=== PATIENT | male | born 1960 | race African-American/Black ===

== ENCOUNTER 2016-06-07 11:22 | Emergency (ER) | payer MEDICAID ==
[~2016-06-07] VITALS: Ht 182.9 cm; Wt 59.0 kg
[2016-06-07 11:22] VITALS: BP 130/86
[2016-06-07 11:53] VITALS: BP 130/86
[2016-06-07] MEDS ORDERED: IBUPROFEN600 MG ORAL (11:59)
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
== END 2016-06-07 12:21 | disposition home or self-care (01) ==
LOC: EDBD 11:22 → EMR 12:19
DX: S00.33XA Contusion of nose, initial encounter (principal); Y04.2XXA Assault by strike against or bumped into by another person, initial encounter; Y92.9 Unspecified place or not applicable
CPT/HCPCS: 99283

== ENCOUNTER 2016-12-08 16:16 | Emergency (ER) | payer MEDICAID ==
[~2016-12-08] VITALS: Ht 182.9 cm; Wt 68.0 kg
[~2016-12-08 16:16] MED LIST: IBUPROFEN600 MG ORAL
[2016-12-08] MEDS ORDERED: Tetanus/Diptheria/Pertussis Vaccine 0.5ml Syr IM ONE (16:30)
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
[2016-12-08] MEDS ORDERED: Lidocaine 1% 10mg/ml/Epi 0.005mg/ml 30ml vial INJ ONE (16:45)
[2016-12-08] MEDS ORDERED: CEPHALEXIN500 MG ORAL (17:06)
[2016-12-08] MEDS ORDERED: BACTRIM-DS1 EA ORAL (17:06)
[2016-12-08 17:10] VITALS: BP 133/84
[2016-12-08 18:16] VITALS: BP 133/84
== END 2016-12-08 18:19 | disposition home or self-care (01) ==
LOC: EDBD 16:16 → EMR 17:38
DX: S61.512A Laceration without foreign body of left wrist, initial encounter (principal); W26.0XXA Contact with knife, initial encounter; Y93.9 Activity, unspecified; Y92.9 Unspecified place or not applicable; Z23 Encounter for immunization; F20.9 Schizophrenia, unspecified; F31.9 Bipolar disorder, unspecified
CPT/HCPCS: 12002; 90471; 90715; 99284; Z7502

== ENCOUNTER 2017-10-01 10:06 | Emergency (ER) | payer MEDICAID ==
[~2017-10-01] VITALS: Ht 188 cm; Wt 72.6 kg
[~2017-10-01 10:06] MED LIST changes: +BACTRIM-DS1 EA ORAL; +CEPHALEXIN500 MG ORAL
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
[2017-10-01 10:48] LABS: BILIRUBIN, URINE NEGATIVE (NEGATIVE); GLUCOSE, URINE (UA) NEGATIVE (NEGATIVE); KETONES,URINE 1+ (NEGATIVE); LEUKOCYTE ESTERASE ,URINE 1+ (NEGATIVE); NITRITE,URINE NEGATIVE (NEGATIVE); PH,URINE 6 (4.5-8.0); PROTEIN,URINE 1+ (NEGATIVE); UROBILINOGEN,URINE 1 MG/DL (0.0-1.0)
[2017-10-01 10:51] LABS: BASOPHILS % (AUTO) 1.7 % (0.0-2.0); EOSINOPHILS % (AUTO) 1.4 % (0.0-3.0); HEMATOCRIT 44.8 % (42.0-52.0); HEMOGLOBIN 14.7 G/DL (14.2-18.0); MEAN CORPUSCULAR VOLUME 91 FL (80-99); MONOCYTES % (AUTO) 10.1 % (1.0-10.0); NEUTROPHILS % (AUTO) 33.9 % (45.0-75.0); PLATELET COUNT 265 K/UL (150-450); RED BLOOD COUNT 4.94 M/UL (4.70-6.10); WHITE BLOOD COUNT 4.8 K/UL (4.8-10.8)
[2017-10-01 10:53] LABS: APPEARANCE,URINE SLIGHTLY CLOUDY; COLOR,URINE YELLOW
[2017-10-01 10:59] LABS: ANION GAP 4 mmol/L (5-15); BLOOD UREA NITROGEN 6 mg/dL (7-18); CALCIUM 9.2 MG/DL (8.5-10.1); CARBON DIOXIDE 32 MMOL/L (21-32); CHLORIDE 101 MMOL/L (98-107); CREATININE 0.9 MG/DL (0.55-1.30); POTASSIUM 4.7 MMOL/L (3.5-5.1); SODIUM 137 MMOL/L (136-145)
[2017-10-01 11:03] LABS: ALANINE AMINOTRANSFERASE 24 U/L (12-78); ALBUMIN 3.8 G/DL (3.4-5.0); ALKALINE PHOSPHATASE 73 U/L (46-116); ASPARTATE AMINO TRANSFERASE 11 U/L (15-37); BILIRUBIN,TOTAL 0.6 MG/DL (0.2-1.0)
[2017-10-01 11:05] VITALS: BP 103/62
[2017-10-01 18:16] VITALS: BP 132/98
[2017-10-01 23:45] VITALS: BP 113/68
[2017-10-02 04:00] VITALS: BP 154/88
[2017-10-02 07:54] VITALS: BP 101/41
[2017-10-02 11:30] VITALS: BP 162/93
[2017-10-02 13:36] VITALS: BP 158/90
[2017-10-02 13:41] VITALS: BP 158/90
--- NOTE | 2017-10-04 12:20 | Cardiology Report ---
APPROVED REPORT EKG Measurement Heart [id number] Sinus rhythm with marked sinus arrhythmia with 1st degree AV block Otherwise normal ECG
== END 2017-10-02 13:41 ==
LOC: EDBD 10:06 → EMR 10:56
DX: F25.9 Schizoaffective disorder, unspecified (principal); F10.929 Alcohol use, unspecified with intoxication, unspecified; R10.9 Unspecified abdominal pain; F41.9 Anxiety disorder, unspecified; F12.10 Cannabis abuse, uncomplicated; Y90.6 Blood alcohol level of 120-199 mg/100 ml; Y04.2XXA Assault by strike against or bumped into by another person, initial encounter
CPT/HCPCS: 36415; 80053; 80307; 80329; 81003; 85025; 93005; 99285

== ENCOUNTER 2018-01-14 16:13 | Emergency (ER) | payer MEDICAID ==
[~2018-01-14] VITALS: Ht 188 cm; Wt 74.8 kg
[2018-01-14 15:50] VITALS: BP 125/74
[2018-01-14] MEDS ORDERED: Bacitracin Oint UD TOPIC ONE (17:45)
[2018-01-14] MEDS ORDERED: BACITRACIN-P28.35 GM TP (17:56)
--- NOTE | 2018-01-14 17:56 | Emergency Room Report ---
History of Present Illness General Chief Complaint: Wound Recheck/Suture Removal Source: EMS Present Illness HPI 59 YO Female presents for her back pain that she rates as 10/10 in severity. pt. states she does not need evaluation of her abdominal pain as it has been going on for awhile,she just wants to make us aware of any other ongoing issues. . She recently completed abx for cellulitis or RLE on the 10th of this month. pt reports being homeless and sleeping in her car which she attributes to the cause of her back pain. pt. describes tightness and spasming of the muscles in the right side of her back. she reports having a hx of HTN and requires refill of her Amlodipine. pt. reports that she is a previous cocaine user. Pt. states that she has been taking Transfer 5mg for her pain. Pt. denies trauma or fall. states had recent CT done at [facility]. Denies fevers, chills , dysuria, urinary frequency or hematuria. Denies incontinence, paresthesias, sciatica, or weakness. Denies recent spinal procedures. Allergies: Coded Allergies: NO KNOWN ALLERGIES (Unverified Allergy, Unknown, 08/22/13) Patient History Past Medical History: see triage record Past Surgical History: none Pertinent Family History: none Immunizations: UTD Reviewed Nursing Documentation: PMH: Agreed; PSxH: Agreed Nursing Documentation-PMH Past Medical History: No History, Except For History Of Psychiatric Problem: Yes Review of Systems All Other Systems: negative except mentioned in HPI Physical Exam Vital Signs Date Time Temp Pulse Resp B/P (MAP) Pulse Ox O2 Delivery O2 Flow Rate FiO2 01/14/18 15:48 98.8 90 18 125/74 98 Room Air Sp02 EP Interpretation: reviewed, normal General Appearance: no apparent distress, alert, GCS 15, non-toxic Head: normocephalic, atraumatic - previously stapled scalp laceration . Eyes: bilateral eye normal inspection, bilateral eye PERRL ENT: hearing grossly normal, normal voice Neck: full range of motion Respiratory: lungs clear, normal breath sounds, speaking full sentences Cardiovascular #1: regular rate, rhythm Musculoskeletal: back normal, gait/station normal, normal range of motion, non- tender Neurologic: alert, oriented x3, responsive, motor strength/tone normal, sensory intact, normal gait, speech normal, grossly normal Psychiatric: judgement/insight normal Skin: normal color, no rash, warm/dry, well hydrated Medical Decision Making PA Attestation Dr. Cooley is my supervising Physician whom patient management has been discussed with. Diagnostic Impression: Primary Impression: Encounter for removal of saul ER Course 59 YO Female presents for her back pain that she rates as 10/10 in severity. pt. states she does not need evaluation of her abdominal pain as it has been going on for awhile,she just wants to make us aware of any other ongoing issues. . She recently completed abx for cellulitis or RLE on the of this month. pt reports being homeless and sleeping in her car which she attributes to the cause of her back pain. pt. describes tightness and spasming of the muscles in the right side of her back. she reports having a hx of HTN and requires refill of her Amlodipine. pt. reports that she is a previous cocaine user. Pt. states that she has been taking Transfer 5mg for her pain. Pt. denies trauma or fall. states had recent CT done at [facility]. Denies fevers, chills , dysuria, urinary frequency or hematuria. Denies incontinence, paresthesias, sciatica, or weakness. Denies recent spinal procedures. Ddx considered but are not limited to laceration, tendon injury, cellulitis, dehiscence. Vital signs: are WNL, pt. is afebrile H&PE are most consistent with: healed laceration of the left temporal scalp ORDERS: none required at this time, the diagnosis is clinical ED INTERVENTIONS: -Tylenol PO - [place] removed without incidence DISCHARGE: At this time pt. is stable for d/c to home. Will provide printed patient care instructions, and any necessary prescriptions. Care plan and follow up instructions have been discussed with the patient prior to discharge. Last Vital Signs Date Time Temp Pulse Resp B/P (MAP) Pulse Ox O2 Delivery O2 Flow Rate FiO2 01/14/18 15:50 98.8 90 18 125/74 98 Room Air Disposition: HOME, SELF-CARE Condition: Stable Scripts Bacitracin/Polymyxin B Sulfate (BACITRACIN-POLYMYXIN OINTMENT) 28.35 Gm Oint...g. 1 APPLIC TP BID, #22 GM Prov: Ermelinda Lane 01/14/18 Referrals: [facility],REFERR[facility] (PCP) Patient Instructions: Wound Closure Removal Additional Instructions: Take medications as directed. Follow up with a Primary Care Provider in 3-5 days, even if your symptoms have resolved. --Please review list of primary care clinics, if you do not already have a primary care provider Return sooner to ED if new symptoms occur, or current symptoms become worse. - Please note that this Emergency Department Report was dictated using [employer] technology software, occasionally this can lead to erroneous entry secondary to interpretation by the dictation equipment. Ermelinda Lane Jan 14, 2018 17:56
[2018-01-14 18:22] VITALS: BP 125/74
== END 2018-01-14 18:36 | disposition home or self-care (01) ==
LOC: EDBD 16:13 → EMR 17:13
DX: Z48.02 Encounter for removal of sutures (principal)
CPT/HCPCS: 99283